=== PATIENT | female | born 1970 | race Caucasian/White ===

== ENCOUNTER 2017-05-02 14:15 | Emergency (ER) | payer BC ==
[2017-05-02 14:25] VITALS: BP 99/69; PULSE 69; TEMP 98.1; BMI 22.1
--- NOTE | 2017-05-02 14:30 | PDOC ---
History of Present Illness - General History Source: Patient Exam Limitations: No Limitations - History of Present Illness Initial Comments: 05/02/17 14:48 The patient is a 46 year old female, with no significant past medical history, who presents to the emergency room complaining of right foot swelling and pain after accidentally dropping a heavy box on her right foot this afternoon when moving things around in her garage. She notes throbbing pain below the right great toe. The patient is ambulatory. Denies any other injuries, head trauma, or LOC. Allergies: none reported <Venessa Valentin - Last Filed: 05/02/17 15:17> <Jo Crook - Last Filed: 05/02/17 15:46> - General Chief Complaint: Injury Stated Complaint: RT FOOT PAIN Time Seen by Provider: 05/02/17 14:30 Past History <Venessa Valentin - Last Filed: 05/02/17 15:17> - Past Medical History Other medical history: DENIES - Psycho/Social/Smoking Cessation Hx Anxiety: No Suicidal Ideation: No Smoking History: Never smoked Have you smoked in the past 12 months: No Information on smoking cessation initiated: No Hx Alcohol Use: No Drug/Substance Use Hx: No Substance Use Type: None <Jo Crook - Last Filed: 05/02/17 15:46> - Past Medical History Allergies/Adverse Reactions: Allergies Allergy/AdvReac Type Severity Reaction Status Date / Time No Known Allergies Allergy Verified 05/02/17 14:21 Home Medications: Ambulatory Orders NK [No Known Home Medication] 05/02/17 Review of Systems - Review of Systems Able to Perform ROS?: Yes Comments:: 05/02/17 14:48 GENERAL/CONSTITUTIONAL: No fever or chills. No weakness. HEAD, EYES, EARS, NOSE AND THROAT: No change in vision. No ear pain or discharge. No sore throat. MUSCULOSKELETAL: + right foot pain and swelling. SKIN: No rash NEUROLOGIC: No headache, vertigo, loss of consciousness, or change in strength/ sensation. <Venessa Valentin - Last Filed: 05/02/17 15:17> *Physical Exam - Vital Signs Last Vital Signs Temp Pulse Resp BP Pulse Ox 98.1 F 69 18 99/69 97 05/02/17 14:15 05/02/17 14:15 05/02/17 14:15 05/02/17 14:15 05/02/17 14:15 - Physical Exam Comments: 05/02/17 14:49 GENERAL: Awake, alert, and fully oriented, in no acute distress HEAD: No signs of trauma HEART: Regular rate and rhythm, normal S1 and S2, no murmurs, rubs or gallops RIGHT LOWER EXTREMITY: Tenderness without ecchymosis or deformity at the great toe MTP joint. No tenderness over mid foot. No ecchymosis. NEUROLOGICAL: Cranial nerves II through XII grossly intact. Normal speech, normal gait SKIN: Warm, Dry, normal turgor, no rashes or lesions noted. <Venessa Valentin - Last Filed: 05/02/17 15:17> - Vital Signs Last Vital Signs Temp Pulse Resp BP Pulse Ox 98.1 F 69 18 99/69 97 05/02/17 14:15 05/02/17 14:15 05/02/17 14:15 05/02/17 14:15 05/02/17 14:15 <Jo Crook - Last Filed: 05/02/17 15:46> ED Treatment Course - RADIOLOGY Radiograph Interpretation: 05/02/17 15:17 EXAM#: TYPE/EXAM: RESULT: [id number] RAD/FOOT-RIGHT Right foot: Great toe pain. Crush injury. Imaging reveals loss of bone density, degenerative changes and bunion formation by the first MTP joint with other arthritic changes and no sign of a gross fracture. The toes are partially flexed. There are no prior studies for comparison. Impression: No acute pathology. Degenerative changes by first MTP joint with bunion formation. Other degenerative changes are present. Symptoms persist, further imaging may be of help. Reported By: Jama Muñoz MD 05/02/17 2396 - Medications Given in the ED: ED Medications Discontinued Medications Generic Name Dose Route Start Last Admin Trade Name Freq PRN Reason Stop Dose Admin Ibuprofen 600 mg 05/02/17 14:31 05/02/17 14:41 Motrin - PO 05/02/17 14:32 600 mg ONCE ONE Administration <Venessa Valentin - Last Filed: 05/02/17 15:17> Medical Decision Making - Medical Decision Making 05/02/17 15:43 Pt presents to the ED complaining of R foot pain after heavy object fell on her foot. Denies other injuries. Tenderness at the great toe MCP joint only, without deformity. Xray checked to rule out fracture and is negative. Will discharge home. <Jo Crook - Last Filed: 05/02/17 15:46> *DC/Admit/Observation/Transfer - Attestations Scribe Attestion: 05/02/17 14:50 Documentation prepared by YEE Garcia, acting as medical claims manager for Jo Crook MD. <Venessa Valentin - Last Filed: 05/02/17 15:17> - Discharge Dispostion Admit: No <Jo Crook - Last Filed: 05/02/17 15:46> Diagnosis at time of Disposition: Contusion, foot Qualifiers: Encounter type: initial encounter Laterality: right Qualified Code(s): S90.31XA - Contusion of right foot, initial encounter - Discharge Dispostion Disposition: HOME Condition at time of disposition: Good - Referrals Referrals: Oskar Davis [Primary Care Provider] - - Patient Instructions Printed Discharge Instructions: DI for Foot Pain Additional Instructions: return to the ED for severe pain, especially severe swelling of the foot, unable to walk. you can take over the counter motrin or tylenol for pain.
[2017-05-02] MEDS ORDERED: IBUPROFEN 600 MG TABLET (FP) PO ONE ×2 (14:31→14:37)
== END 2017-05-02 15:51 | disposition home or self-care (01) ==
LOC: FER 14:15
DX: S90.31XA Contusion of right foot, initial encounter (principal); W20.8XXA Other cause of strike by thrown, projected or falling object, initial encounter; Y93.89 Activity, other specified; Y92.9 Unspecified place or not applicable
CPT/HCPCS: 73630-TC-RT; 99282-25